=== PATIENT | female | born 2000 | race Caucasian/White ===

== ENCOUNTER 2022-08-26 10:36 | Inpatient (IN) ==
[2022-08-26] MEDS ORDERED: LIDOCAINE 1% LOCAL 20 ML VIAL INFIL PRN (11:49)
[2022-08-26] MEDS ORDERED: OXYTOCIN 30 UNITS/500 ML BAG IV PRN ×2 (11:49→21:15)
[2022-08-26] MEDS ORDERED: PENICILLIN G POTASSIUM 6 MU in DEXTROSE 5% 250 ML IV STA (11:55)
[2022-08-26 12:52] LABS: Hematocrit (blood only) 31.9 % (37.0-47.0); Hemoglobin 11.3 g/dl (12.0-16.0); Mean Corpuscular Hemoglobin 29.7 pg (25.0-34.0); Mean Corpuscular Hgb Conc 35.4 g/dL (32.0-36.0); Mean Corpuscular Volume 83.9 fL (80.0-100.0); Mean Platelet Volume 10.5 fL (9.4-12.4); Platelet Count 172 K/uL (130-400); RDW Standard Deviation 42.9 fL (36.4-46.3); White Blood Count 11.43 K/ul (4.8-10.8)
--- NOTE | 2022-08-26 13:27 | History & Physical Report ---
Date of Service August 26, 2022 Assessment & Plan (1) Supervision of normal intrauterine in primigravida: Plan: Has made cervical change since 1 week ago, will admit and monitor - ok to ambulate. She will want epidural, but not yet. She would prefer to progress naturally; I offered patient to walk and will plan to recheck cervix for change. GBS prophylaxis, Penicillin. Admission and Anticipated Discharge Date Admission Date: August 26, 2022 History of Present Illness Chief Complaint: contractions Primary Care Provider: Rommel Hernández 22yo @ 38 08/21, presented to L&D with contractions. + movement. No vaginal bleeding or leaking fluid. Obesity (BMI between 35-39 @ beginning of ) *Growth US @ 32 wks *Weekly NSTs @ 36wks *M [facility] [place]-for anatomy u/s (04/22/22 @ [facility] [place]) incomplete anatomy f/u scheduled 05/21/22 @ [facility] [place] ? VSD- echo 06/11/22 @ [facility] [place] echo normal - rec echo after Normal pap @ NO[facility] visit. *repeat pap in 1 year GBS + urine-treat in labor Allergies Allergy/AdvReac Type Severity Reaction Status Date / Time latex Allergy Mild Rash Verified 08/26/22 12:36 Home Medications Medication Instructions Recorded Confirmed Type prenat.vits,bryce,emz-msop-ebuak 1 tab PO DAILY 01/22/22 08/26/22 History Patient History Medical History (Updated 08/26/22 @ 11:30 by Kisha Gates, KENNETH) LGSIL on Pap smear of cervix 08/2020, had colpo 08/2020, Dr. Quinn no bx taken Obesity Surgical History (Updated 08/26/22 @ 11:31 by Kisha Gates, RN) History of tonsillectomy and adenoidectomy No pertinent past surgical history Family History Other Cancer Diabetes Social History (Updated 08/26/22 @ 11:33 by Kisha Gates, RN) Smoking Status: Former smoker Do You Dip or Chew Tobacco: No; Hx Alcohol Use: No Hx Substance Use: No Preferred Language: Malaysian Communication Ability: Effective Drum Worker Required: No Beliefs That Will Affect Care: None marital status: Single marital status details: [employer] Marks [phone] Current Living Situation: Significant Other Current Living Situation Comment: lives with fob, mother, father, 2 dogs, 1 cat, fob change litter. current occupational status: unemployed current occupation: Homemaker Other Information That Helps Us Care for You: No Feels Safe at Home: Yes Review of Systems All systems reviewed & are unremarkable except as noted in HPI & below Physical Exam Physical Exam: FHT Cat 1 Tancred irreg SVE 3/100/-1, bulging membranes Constitutional: WD/WN, vitals as above Respiratory: normal respiratory effort, lungs clear to auscultation no r espiratory distress Cardiovascular: Rate/Rhythm: regular rate and regular rhythm Gastrointestinal (Abdomen): Inspection/Auscultation: abdomen normal to inspection Percussion/Palpation: abdomen soft; abdomen nontender Gravid. No s/s chorio or abruption. Skin: no rashes, warm and dry Psychiatric: A+Ox3, euthymic affect Results & Data Vital Signs (Past 12 Hours) Vital Signs Temp Pulse Resp BP 08/26/22 11:34 36.9 C 20 08/26/22 10:53 36.9 C 96 H 20 137/80 Coding Level of Care Code None Diagnoses Supervision of normal intrauterine in primigravida Z34.00
[2022-08-26] MEDS ORDERED: BUTORPHANOL TARTRATE 1 MG/ML VIAL IV ONE (15:19)
[2022-08-26] MEDS: PENICILLIN G POTASSIUM 3 MU in DEXTROSE 5% 100 ML IV PRN ×2 (17:59→22:17)
[2022-08-26] MEDS ORDERED: LABETALOL HCL IV 5 MG/ML 20ML IV STA ×2 (21:14→22:50)
--- NOTE | 2022-08-26 21:20 | Labor Progress Brief Note ---
Date of Service August 26, 2022 Subjective Patient has ambulated, rechecked - cervix 4/100/-1. Ctx Q 4 Discussed plans - that we need to create a more uniform and consistent contraction pattern in order to progress towards delivery. She is agreeable at this point to start pitocin, discussed this and answered questions. She feels that she is not ready yet for an epidural. Did receive Stadol earlier today, one dose, for contraction pain. There are some Pulse oximeter measurements in the computer system, 75, 83, 84 - these are not accurate - the pulse oximeter was plugged in, but not attached to the patient. Blood pressures elevated. Ordered preeclampsia labs: CBC, CMP, prot/creat ratio. Will give one dose labetalol at this time. Assessment & Plan Admission and Anticipated Discharge Date Admission Date: August 26, 2022 Results & Data Vital Signs (Past 12 Hours) Vital Signs Temp Pulse Resp BP Pulse Ox 08/26/22 19:30 36.7 C 18 08/26/22 11:34 36.9 C 20 08/26/22 21:13 88 08/26/22 21:13 170/95 H 08/26/22 21:08 87 08/26/22 21:08 171/96 H 08/26/22 21:00 18 08/26/22 21:00 36.7 C 18 08/26/22 21:04 85 08/26/22 21:04 167/92 H 08/26/22 20:59 91 H 08/26/22 20:59 173/100 H 08/26/22 20:54 75 L 08/26/22 20:54 170 H 08/26/22 20:53 88 08/26/22 20:53 167/99 H 08/26/22 20:49 83 L 08/26/22 20:49 125 H 08/26/22 20:49 84 L 08/26/22 20:49 127 H 08/26/22 20:47 91 H 08/26/22 20:47 165/102 H 08/26/22 19:24 82 08/26/22 19:24 160/83 H 08/26/22 19:23 94 H 08/26/22 19:23 187/111 H 08/26/22 19:22 96 H 08/26/22 19:22 185/106 H 08/26/22 19:20 90 08/26/22 19:20 173/103 H 08/26/22 18:40 19 08/26/22 18:40 36.7 C 19 08/26/22 18:40 88 08/26/22 18:40 142/89 H 08/26/22 14:56 82 08/26/22 14:56 145/82 H 08/26/22 10:53 36.9 C 96 H 20 137/80 Coding Level of Care Code None Diagnoses
[2022-08-26 22:14] LABS: Albumin Globulin Ratio 1.1 (0.9-2); Albumin Level 3.5 gm/dl (3.4-5.0); BUN Creatinine Ratio 8.9 (10-20); Bilirubin,Total 0.3 mg/dl (0.2-1.0); Calcium 9.3 mg/dl (8.6-10.3); Creatinine Clr Calc Pharmacy 163.3 ml/min; Est GFR (African American) 121.4 ml/min; Est GFR (Non-African American) 104.8 ml/min; Globulin 3.2 gm/dl (2.5-4.0); Potassium 3.4 mmol/L (3.5-5.1); Total Protein 6.7 gm/dl (6.0-8.3)
[2022-08-26 22:21] LABS: Hematocrit (blood only) 33.8 % (37.0-47.0); Hemoglobin 11.7 g/dl (12.0-16.0); Mean Corpuscular Hemoglobin 29.8 pg (25.0-34.0); Mean Corpuscular Hgb Conc 34.6 g/dL (32.0-36.0); Mean Platelet Volume 10.4 fL (9.4-12.4); Platelet Count 176 K/uL (130-400); RDW Coefficient of Variation 13.9 % (11.5-14.5); RDW Standard Deviation 43.4 fL (36.4-46.3); Red Blood Count 3.93 M/uL (4.20-5.40); White Blood Count 13.68 K/ul (4.8-10.8)
[2022-08-26 22:24] LABS: Creatinine Urine Random 50.5 mg/dl; Protein Creatinine Ratio Urine 0.4 (0-0.2); Total Protein Urine Random 18.4 mg/dl (0-11.9)
[2022-08-27] MEDS ORDERED: ePHEDrine sulfate 50 MG/ML AMP ONE (00:04)
[2022-08-27] MEDS ORDERED: fentaNYL 2MCG/ML ROPIVACAINE 1.25MG/ML 100 ML BAG EPI PRN (00:05)
[2022-08-27] MEDS ORDERED: SODIUM CHLORIDE 0.9% PF INJ 10 ML VIAL EPI STA (00:05)
[2022-08-27] MEDS ORDERED: BUPIVACAINE 0.25% PF 30 ML VIAL EPI STA (00:05)
[2022-08-27] MEDS ORDERED: diphenhydrAMINE 50 MG/ML VIAL IV PRN (00:05)
[2022-08-27] MEDS ORDERED: ePHEDrine sulfate 50 MG/ML AMP IV PRN (00:05)
[2022-08-27] MEDS ORDERED: LIDOCAINE 2% MPF LOCAL 5 ML VIAL EPI PRN (00:05)
[2022-08-27] MEDS ORDERED: SODIUM CHLORIDE 0.9% PF INJ 10 ML VIAL EPI PRN (00:05)
[2022-08-27] MEDS ORDERED: ROPIVACAINE 0.5% PF 5 MG/ML 20 ML VIAL EPI PRN (00:05)
[2022-08-27] MEDS ORDERED: fentaNYL citrate PF 100 MCG/2 ML VIAL EPI STA (00:05)
[2022-08-27] MEDS ORDERED: LIDOCAINE 2%/EPINEPHRINE 1:200,000 20 ML PF EPI STA (00:05)
[2022-08-27] MEDS ORDERED: NALBUPHINE HCL INJ 10 MG/ML AMP IV PRN (00:05)
[2022-08-27] MEDS ORDERED: fentaNYL citrate PF 100 MCG/2 ML VIAL EPI PRN (00:05)
[2022-08-27] MEDS ORDERED: NALOXONE HCL 1 MG in SODIUM CHLORIDE 0.9% 1000ML 1,000 ML IV PRN (00:05)
[2022-08-27] MEDS ORDERED: BUPIVACAINE 0.25% PF 30 ML VIAL EPI PRN (00:05)
[2022-08-27] MEDS ORDERED: NALOXONE HCL 0.4 MG/1 ML VIAL/CARP IV PRN (00:05)
--- NOTE | 2022-08-27 00:05 | Anesthesiology Consultation ---
Date of Service August 27, 2022 Assessment & Plan (1) Encounter for pre-operative examination: Chart Review Chart Review: Patient NOT seen in Pre Admission Testing and Acceptable Risk for Labor Epidural Consults Requested none History Height/Weight Height: 5 ft 8 in Weight: 139.706 kg Allergies Allergy/AdvReac Type Severity Reaction Status Date / Time latex Allergy Mild Rash Verified 08/26/22 12:36 Medications Home Medications Medication Instructions Recorded Confirmed Last Taken prenat.vits,bryce,pbu-ejhj-hqzlw 1 tab PO DAILY 01/22/22 08/26/22 08/26/22 Active Medications Generic Name Dose Route Start Last Admin Trade Name Freq PRN Reason Stop Dose Admin Penicillin G Potassium 3 mu/ 106 mls @ 100 mls/hr 08/26/22 14:49 08/26/22 22:17 Dextrose IV 09/05/22 14:48 100 mls/hr Q4H PRN Administration GBS(+) Until Delivery Oxytocin 30 units in 500 mls @ 3 mls/hr 08/26/22 21:15 08/26/22 23:30 Pitocin IV 08/28/22 21:14 0.18 units/hr .Q24H PRN 3 mls/hr Labor Induction/Augmentation Titration Protocol 0.18 UNITS/HR Past Medical History Medical History LGSIL on Pap smear of cervix 08/2020, had colpo 08/2020, Dr. Quinn no bx taken Obesity Past Family History Family History Other Cancer Diabetes Past Surgical History Surgical History History of tonsillectomy and adenoidectomy No pertinent past surgical history Social History Smoking Status: Former smoker Do You Dip or Chew Tobacco: No Hx Alcohol Use: No Hx Substance Use: No Physical Exam Vital Signs Last Vital Signs Temp 98.1 F 08/26/22 21:00 Pulse 76 08/27/22 00:01 Resp 18 08/26/22 21:00 BP 172/86 H 08/27/22 00:01 Pulse Ox 75 L 08/26/22 20:54 Testing Laboratory Results 08/26/22 21:34 08/26/22 21:34 Blood Type A Positive 08/26/22 12:16 Antibody Screen NEGATIVE 08/26/22 12:16
[2022-08-27] MEDS ORDERED: SODIUM CHLORIDE 0.9% PF INJ 10 ML VIAL ONE (00:06)
[2022-08-27] MEDS ORDERED: fentaNYL citrate PF 100 MCG/2 ML VIAL ONE (00:06)
[2022-08-27] MEDS ORDERED: BUPIVACAINE 0.25% PF 30 ML VIAL ONE (00:06)
[2022-08-27] MEDS ORDERED: LIDOCAINE 2%/EPINEPHRINE 1:200,000 20 ML PF ONE (00:06)
[2022-08-27] MEDS ORDERED: fentaNYL 2MCG/ML ROPIVACAINE 1.25MG/ML 100 ML BAG EPI ONE (00:07)
[2022-08-27] MEDS: LACTATED RINGER'S 1,000 ML IV PRN ×2 (01:42→13:59)
[2022-08-27] MEDS: PENICILLIN G POTASSIUM 3 MU in DEXTROSE 5% 100 ML IV PRN ×2 (02:28→06:31)
--- NOTE | 2022-08-27 03:38 | Labor Progress Brief Note ---
Date of Service August 27, 2022 Subjective Comfortable now with epidural. FHT Cat 1 prior to AROM [place] - unreadable prior to AROM AROM, small amount of fluid, thin mec SVE 5/100/0 IUPC, FSE placed. FHT to 40s initially, came back to baseline with repositioning. After return to baseline, FHT Cat 1. IUPC showing ctx Q 3-4 min Will allow for recovery, then will continue increasing pitocin. Assessment & Plan Admission and Anticipated Discharge Date Admission Date: August 26, 2022 Results & Data Vital Signs (Past 12 Hours) Vital Signs Temp Pulse Resp BP Pulse Ox 08/26/22 19:30 36.7 C 18 08/27/22 03:29 81 97 08/27/22 03:24 91 H 97 08/27/22 03:19 85 97 08/27/22 03:18 90 144/94 H 08/27/22 03:14 77 97 08/27/22 03:09 94 H 98 08/27/22 03:00 18 08/27/22 03:00 18 08/27/22 03:04 72 97 08/27/22 03:02 88 131/71 08/27/22 02:59 71 96 08/27/22 02:54 75 96 08/27/22 02:49 74 96 08/27/22 02:47 76 123/70 08/27/22 02:44 73 95 08/27/22 02:39 71 96 08/27/22 02:34 69 96 08/27/22 02:33 75 137/78 08/27/22 02:29 85 96 08/27/22 02:24 76 95 08/27/22 02:19 75 94 08/27/22 02:17 74 131/75 94 08/27/22 02:14 74 95 08/27/22 02:00 18 08/27/22 02:00 18 08/27/22 02:09 83 94 08/27/22 02:08 83 94 08/27/22 02:04 78 94 08/27/22 02:02 94 08/27/22 02:02 73 08/27/22 02:02 70 131/75 08/27/22 01:59 73 95 08/27/22 01:54 77 94 08/27/22 01:51 76 94 08/27/22 01:49 74 95 08/27/22 01:48 75 123/67 08/27/22 01:46 76 94 08/27/22 01:44 74 95 08/27/22 01:41 75 94 08/27/22 01:39 79 94 08/27/22 01:34 73 95 08/27/22 01:35 73 94 08/27/22 01:30 18 08/27/22 01:30 18 08/27/22 01:32 71 129/69 08/27/22 01:29 80 95 08/27/22 01:24 77 94 08/27/22 01:19 79 95 08/27/22 01:17 76 143/77 H 08/27/22 01:14 78 95 08/27/22 01:09 78 95 08/27/22 01:04 81 96 08/27/22 01:00 18 08/27/22 01:00 37.1 C 18 08/27/22 01:02 77 142/81 H 08/27/22 00:59 79 95 08/27/22 00:54 85 96 08/27/22 00:49 85 96 08/27/22 00:46 81 140/85 08/27/22 00:44 85 96 08/27/22 00:42 83 137/87 08/27/22 00:39 85 96 08/27/22 00:38 91 H 148/86 H 08/27/22 00:34 87 148/86 H 97 08/27/22 00:30 90 168/110 H 08/27/22 00:29 92 H 98 08/27/22 00:24 86 100 08/27/22 00:19 98 H 96 08/27/22 00:01 76 172/86 H 08/26/22 23:47 78 08/26/22 23:47 187/95 H 08/26/22 23:35 80 08/26/22 23:35 177/89 H 08/26/22 23:31 77 08/26/22 23:31 181/95 H 08/26/22 23:09 80 08/26/22 23:09 170/93 H 08/26/22 22:48 79 08/26/22 22:48 170/92 H 08/26/22 22:33 81 08/26/22 22:33 163/90 H 08/26/22 22:18 82 08/26/22 22:18 148/84 H 08/26/22 22:11 80 08/26/22 22:11 182/90 H 08/26/22 21:48 80 08/26/22 21:48 179/97 H 08/26/22 21:23 90 08/26/22 21:23 171/93 H 08/26/22 21:18 86 08/26/22 21:18 168/93 H 08/26/22 21:13 88 08/26/22 21:13 170/95 H 08/26/22 21:08 87 08/26/22 21:08 171/96 H 08/26/22 21:00 18 08/26/22 21:00 36.7 C 18 08/26/22 21:04 85 08/26/22 21:04 167/92 H 08/26/22 20:59 91 H 08/26/22 20:59 173/100 H 08/26/22 20:54 75 L 08/26/22 20:54 170 H 08/26/22 20:53 88 08/26/22 20:53 167/99 H 08/26/22 20:49 83 L 08/26/22 20:49 125 H 08/26/22 20:49 84 L 08/26/22 20:49 127 H 08/26/22 20:47 91 H 08/26/22 20:47 165/102 H 08/26/22 19:24 82 08/26/22 19:24 160/83 H 08/26/22 19:23 94 H 08/26/22 19:23 187/111 H 08/26/22 19:22 96 H 08/26/22 19:22 185/106 H 08/26/22 19:20 90 08/26/22 19:20 173/103 H 08/26/22 18:40 19 08/26/22 18:40 36.7 C 19 08/26/22 18:40 88 08/26/22 18:40 142/89 H Coding Level of Care Code None Diagnoses
[2022-08-27] MEDS ORDERED: bisacodyL 10 MG SUPP PR PRN (11:18)
[2022-08-27] MEDS ORDERED: ACETAMINOPHEN 325 MG TAB PO PRN (11:18)
[2022-08-27] MEDS ORDERED: BENZOCAINE 20% AER SPR 82.5 GM CAN EXT PRN (11:18)
[2022-08-27] MEDS ORDERED: miSOPROStoL 200 MCG TAB PR ONE (11:18)
[2022-08-27] MEDS ORDERED: OXYTOCIN 30 UNITS/500 ML BAG IV PRN (11:18)
[2022-08-27] MEDS ORDERED: HYDROCORTISONE ACETATE 25 MG SUPP PR PRN (11:18)
[2022-08-27] MEDS ORDERED: DIPHTHERIA/TETANUS/PERTUSSIS Vaccine (Tdap, Age 7+yrs) 0.5mL SYR/VL IM ONE (11:18)
--- NOTE | 2022-08-27 13:10 | Anesthesia Procedure Note ---
Date of Service August 27, 2022 Anesthesia Post Epidural Note Vital Signs Vital Signs: Temp Pulse Resp BP Pulse Ox 36.7 C 122 H 17 132/84 99 08/27/22 09:39 08/27/22 12:57 08/27/22 08:30 08/27/22 12:57 08/27/22 10:49 Pain Intensity Bilateral Abdomen: Pain Intensity: 3 Notes Mental Status: alert / awake / arousable and participated in evaluation Nausea / Vomiting: adequately controlled Pain: adequately controlled Airway Patency, RR, SpO2: stable & adequate BP & HR: stable & adequate Hydration State: stable & adequate Neuraxial Anesthesia: was administered and sensory block is resolving Anesthetic Complications: no major complications apparent Epidural: Removed without complications and With tip intact
[2022-08-27] MEDS: IBUPROFEN 600 MG TAB PO PRN ×3 (14:02→23:25)
[2022-08-27] MEDS: DOCUSATE SODIUM 100 MG CAP PO SCH (21:08)
[2022-08-27] MEDS ORDERED: miSOPROStoL 200 MCG TAB ONE (23:00)
--- NOTE | 2022-08-28 03:15 | Delivery Summary ---
DATE OF SERVICE: 08/27/2022. PROCEDURE: Normal spontaneous vaginal delivery with second-degree perineal laceration repair. SURGEON: Dmitry Kent MD. PREOPERATIVE DIAGNOSES: 1. Single intrauterine at 41 weeks' 0 days gestational age. 2. Spontaneous labor. 3. GBS positive. 4. BMI greater than 45. POSTOPERATIVE DIAGNOSES: 1. Single intrauterine at 41 weeks' 0 days gestational age. 2. Spontaneous labor. 3. GBS positive. 4. BMI greater than 45. 5. Status post procedure. ESTIMATED BLOOD LOSS: 300 mL. DRAINS: None. FLUIDS: Continuous lactated Ringer. URINE OUTPUT: Not measured. COMPLICATIONS: None. FINDINGS: Viable with weight of 8 pounds 2-1/2 ounces and Apgars of 7 and 8 at one and five minutes respectively. DESCRIPTION OF PROCEDURE: The patient progressed to 10 cm dilated, 100% effaced, positive 2 station, pushed over intact perineum with epidural anesthesia, delivered a viable with weight and Apg ars as noted above. Head of the delivered in SULTANA position, restituted to left transverse. N o nuchal cord was noted. Body and shoulders quickly followed. was delivered to the maternal abdomen, there was noted to have poor tone. The cord was double clamped and cut. was taken over to the waiting nursery staff for evaluation and was noted to have spontaneous cry and became vi gorous shortly thereafter. Cord blood was obtained. Attention was then turned to delivery of the pl acenta, which was delivered intact, 3-vessel cord, gentle cord traction. On inspection of perineum, vagina, cervix, there was noted to be a small second-degree perineal laceration, which was repaired w ith 3-0 Vicryl in a traditional crown stitch. Needle, sponge, and instrument counts were correct at completion of the case. Both mother and stable in the immediate post-delivery period. Job ID: [id number]
[2022-08-28] MEDS: IBUPROFEN 600 MG TAB PO PRN ×4 (04:31→19:34)
[2022-08-28 06:10] LABS: Hematocrit (blood only) 24.2 % (37.0-47.0); Hemoglobin 8.3 g/dl (12.0-16.0)
[2022-08-28] MEDS: DOCUSATE SODIUM 100 MG CAP PO SCH ×2 (08:10→19:34)
[2022-08-28] MEDS: PRENATAL VITAMIN 1 TAB PO SCH (08:10)
--- NOTE | 2022-08-28 08:16 | Obstetrical Progress Note ---
Date of Service August 28, 2022 Assessment & Plan (1) Encounter for care and examination after delivery: Day 1 status post vaginal delivery. Patient doing well. Blood pressures have been normal since delivery. Preeclampsia evaluation was normal during labor. Denying preeclampsia symptoms. Routine care Subjective Ambulation: ambulating normally Voiding: no voiding problems Passing Gas:: Yes Diet Tolerance:: regular diet Lochia:: Moderate Feeding Type:: breast feeding Physical Exam Constitutional WD/WN, vitals as above Respiratory normal respiratory effort; no respiratory distress and no labored breathing Gastrointestinal (Abdomen) Inspection/Auscultation: abdomen normal to inspection; abdomen not distended Percussion/Palpation: abdomen soft; abdomen nontender, no guarding and abdomen not rigid Genitourinary OB Exam Abdomen: + fundal height Fundus: + firm and + relation to umbilicus (Below); not tender or not boggy Results & Data Vital Signs (Past 12 Hours) Vital Signs Temp Pulse Resp BP Pulse Ox O2 Del Method 08/28/22 04:28 36.6 C 95 H 18 136/86 99 Room Air 08/27/22 23:20 36.4 C L 98 H 18 132/84 98 Room Air
[2022-08-28] MEDS ORDERED: bisacodyL 5 MG TABEC PO SCH (20:00)
--- NOTE | 2022-08-29 07:45 | Obstetrical Progress Note ---
Date of Service August 29, 2022 Assessment & Plan (1) Encounter for care and examination after delivery: Ready for D/C today, instructions reviewed. Subjective Ambulation: ambulating normally Voiding: no voiding problems Passing Gas:: Yes Diet Tolerance:: regular diet Lochia:: Small Feeding Type:: breast feeding Physical Exam Constitutional WD/WN, vitals as above Eyes PERRL, conjunctivae normal, anicteric sclerae Neck normal visual inspection Respiratory normal respiratory effort and able to speak in complete sentences; no respiratory distress and no labored breathing Cardiovascular Rate/Rhythm: regular rate and regular rhythm Extremities: no edema Chest (Breasts) Chest: normal inspection of chest Gastrointestinal (Abdomen) Inspection/Auscultation: abdomen normal to inspection Soft, postgravid Psychiatric A+Ox3, euthymic affect Genitourinary OB Exam Abdomen: + fundal height Fundus: + firm and + relation to umbilicus (fundus just below umbilicus); not tender Results & Data Vital Signs (Past 12 Hours) Vital Signs Temp Pulse Resp BP 08/29/22 00:00 98.2 F 92 H 18 154/94 H 08/28/22 20:20 97.7 F 91 H 18 139/89
[2022-08-29] MEDS: DOCUSATE SODIUM 100 MG CAP PO SCH (08:24)
[2022-08-29] MEDS: PRENATAL VITAMIN 1 TAB PO SCH (08:24)
[2022-08-29] MEDS: IBUPROFEN 600 MG TAB PO PRN (08:24)
== END 2022-08-29 12:27 | disposition home or self-care (01) | DRG 807 ==
LOC: OPB 10:36 → 4S1 10:38 → 4E2 08-27 16:43